=== PATIENT | female | born 1940 | race American Indian/Alaskan Native ===

== ENCOUNTER 2020-01-01 13:01 | Emergency (ER) | payer SELFPAY ==
--- NOTE | 2020-01-01 13:23 | Emergency Department Report ---
Blank Doc - Documentation Documentation: 79-year-old female that presents with SOB and blurry vision. No facial drooping. No headache. No abdnomal gait. Normal strength. No one sided weakness. This initial assessment/diagnostic orders/clinical plan/treatment(s) is/are subject to change based on patient's health status, clinical progression and re- assessment by fellow clinical providers in the ED. Further treatment and workup at subsequent clinical providers discretion. Patient/guardians urged not to elope from the ED as their condition may be serious if not clinically assessed and managed. Initial orders include: 1- Patient sent to MAIN ED for further evaluation and treatment 2- cardiac workup
[2020-01-01 13:26] VITALS: BP 108/60
[2020-01-01 14:06] LABS: Basophils # (Auto) 0.1 K/mm3 (0.0-0.1); Basophils % (Auto) 0.7 % (0.0-1.8); Eosinophils # (Auto) 0.1 K/mm3 (0.0-0.4); Eosinophils % (Auto) 1.2 % (0.0-4.3); Hematocrit 22.2 % (30.3-42.9); Hemoglobin 7.2 gm/dl (10.1-14.3); Lymphocytes # (Auto) 1.2 K/mm3 (1.2-5.4); Lymphocytes % (Auto) 14.7 % (13.4-35.0); Mean Corpuscular HGB Conc 32 % (30-34); Mean Corpuscular Volume 88 fl (79-97); Monocytes # (Auto) 0.7 K/mm3 (0.0-0.8); Monocytes % (Auto) 8.3 % (0.0-7.3); Platelet Count 430 K/mm3 (140-440); Red Blood Count 2.53 M/mm3 (3.65-5.03); Red Cell Distribution Width 16.2 % (13.2-15.2)
[2020-01-01 14:19] LABS: Partial Thromboplastin Time 30.3 Sec. (24.2-36.6)
[2020-01-01 14:20] LABS: INR 1.09 (0.87-1.13)
--- NOTE | 2020-01-01 14:26 | XRay Report ---
CHEST 2 VIEWS INDICATION: Chest Pain. COMPARISON: None. FINDINGS: Support devices: None. Heart: Within normal limits. Pulmonary vasculature: Normal. Lungs/pleura: Bibasal streaky lung opacities on the frontal view. Blunted costophrenic angles. Subseg mental atelectasis versus scar in the right middle lobe. No airspace disease or pleural effusion. No pneumothorax. Additional findings: None. IMPRESSION: 1. No CHF or pneumonia. 2. Bilateral lower lobe subsegmental atelectasis versus scarring. 3. Right middle lobe subsegmental atelectasis versus scar. Signer Name: Nic Barrera MD Signed: 01/01/2020 2:22 PM Workstation Name: [id number]
[2020-01-01 14:28] LABS: Albumin 2.9 g/dL (3.9-5); Calcium 8.5 mg/dL (8.4-10.2)
--- NOTE | 2020-01-01 19:14 | Emergency Department Report ---
HPI - General Chief Complaint: Dyspnea/Respdistress Time Seen by Provider: 01/01/20 13:21 - HPI HPI: 79-year-old -[place] female presents to the emergency department with complaint of a 2-month history of some blurry vision. She says that this st arted shortly after she moved here 2 months ago. The patient also has a history of hypertension, dementia, paroxysmal atrial fibrillation on Eliquis. Her primary care physician is Dr. Rodríguez and she has not seen him regarding her symptoms. Patient says that she will occasionally get some mild shortness of breath with exertion. She denies any fever, chest pain, headache, slurred speech or any other neurological deficits. The patient wears glasses. She does not have an associate of science in nursing. ED Past Medical Hx - Past Medical History Previous Medical History?: Yes Hx Hypertension: Yes Additional medical history: A fib - Social History Smoking Status: Current Some Day Smoker Substance Use Type: Alcohol - Medications Home Medications: Home Medications Medication Instructions Recorded Confirmed Last Taken Type Ferrous Sulfate [Feosol] 325 mg PO BID #40 tablet 01/01/20 Unknown Rx ED Review of Systems ROS: Stated complaint: [place]/BLURRY VISION Other details as noted in HPI Comment: All other systems reviewed and negative Constitutional: weakness. denies: fever Eyes: vision change (chronic). denies: eye pain ENT: denies: ear pain, throat pain Respiratory: SOB with exertion (intermittent, mild). denies: cough Cardiovascular: denies: chest pain, palpitations Gastrointestinal: denies: abdominal pain, vomiting Genitourinary: denies: dysuria, discharge Musculoskeletal: denies: back pain, arthralgia Skin: denies: rash, lesions Neurological: denies: headache, numbness Physical Exam - Physical Exam Vital Signs: Vital Signs 01/01/20 13:24 Temperature 98.4 F Pulse Rate 77 Respiratory 18 Rate Blood Pressure 108/60 [Left] O2 Sat by Pulse 100 Oximetry Physical Exam: GENERAL: The patient is well-developed well-nourished. HENT: Normocephalic. Atraumatic. Patient has moist mucous membranes. EYES: Extraocular motions are intact. Pupils equal reactive to light bilaterally. Visual acuity: OD 20/70, OS 20/50, OU 20/40. NECK: Supple. Trachea is midline. CHEST/LUNGS: Clear to auscultation. There is no respiratory distress noted. HEART/CARDIOVASCULAR: Regular. There is no tachycardia. ABDOMEN: Abdomen is soft, nontender. Patient has normal bowel sounds. There is no abdominal distention. SKIN: Skin is warm and dry. NEURO: The patient is awake, alert, and oriented. The patient is cooperative. The patient has no focal neurologic deficits. Normal speech. Cranial nerves II through XII grossly intact. No facial asymmetry. No pronator drift or dysmetria. MUSCULOSKELETAL: There is no tenderness or deformity. There is no limitation range of motion. There is no evidence of acute injury. ED Course Vital Signs 01/01/20 13:24 Temperature 98.4 F Pulse Rate 77 Respiratory 18 Rate Blood Pressure 108/60 [Left] O2 Sat by Pulse 100 Oximetry ED Medical Decision Making - Lab Data Result diagrams: 01/01/20 13:30 01/01/20 13:30 - EKG Data -: EKG Interpreted by Me EKG shows normal: sinus rhythm, axis, intervals, QRS complexes, ST-T waves Rate: normal - EKG Data When compared to previous EKG there are: previous EKG unavailable Interpretation: normal EKG - Radiology Data Radiology results: image reviewed interpreted by me: Chest x-ray does not show any pneumonia, pleural effusions, pneumothorax or focal consolidation. - Medical Decision Making This patient presents with a two-month history of some decreased vision and/or blurry vision. Through triage the patient had also complained of some intermittent mild shortness of breath and generalized weakness. On examination the patient does not appear to have any focal, motor or sensory deficits and her cranial nerves are intact. Her visual acuity is poor but she says that this has been going on for the past 2 months. She denies any headache. The patient is a 0 on the NIH stroke scale. EKG did not show any signs of ST elevation [place]. Chest x-ray did not show any pneumonia, pleural effusions, focal consolidation, pneumothorax, or any other acute process. Patient's labs are mostly unremarkable except for anemia with a hemoglobin of 7.2 and mild hypokalemia w ith potassium of 3.2. The patient was given potassium chloride. The patient says that there is potentially some history of anemia but she is not on any medication for it. I believe that this is partially the reason for her generalized weakness. Vital signs are stable throughout her ED course including no hypoxia, no fever, and no tachycardia. The patient has good follow-up with Dr. Reid for primary care. I contacted him and he is in agreement with outpatient follow-up in the next few days. She will be placed on iron supplements to help with her anemia. She has also been given referrals for ophthalmology regarding her poor vision. The patient will return to the emergency department immediately with any worsening of her symptoms or with any acute distress. - Differential Diagnosis Symptomatic anemia, electrolyte abnormalities, dysrhythmia Critical Care Time: No Critical care attestation.: If time is entered above; I have spent that time in minutes in the direct care of this critically ill patient, excluding procedure time. ED Disposition Clinical Impression: Hypokalemia, Poor vision Anemia Qualifiers: Anemia type: unspecified type Qualified Code(s): D64.9 - Anemia, unspecified Disposition: DC- TO HOME OR SELFCARE Is pt being admited?: No Condition: Stable Instructions: Hypokalemia (ED), Weakness (ED), Blurred Vision (ED), Anemia (ED) Additional Instructions: Please follow-up with Dr. Reid in the next 1 to 2 days without fail. I am also giving you a referral for a few different local ophthalmologists to follow-up regarding your poor vision. I am starting you on iron supplements to help with your anemia. Please return to the emergency department immediately with any worsening of your symptoms, development of chest pain or shortness of breath, or with any acute distress. Prescriptions: Ferrous Sulfate [Feosol] 325 mg PO BID #40 tablet Referrals: THANG REID MD [Staff Physician] - 2-3 Days CHLOE SANABRIA MD [Staff Physician] - 2-3 Days DEBBI GARCIA MD [Staff Physician] - 2-3 Days Time of Disposition: 20:07
[2020-01-01] MEDS ORDERED: POTASSIUM CHLORIDE ER 20 MEQ TAB PO ONE (19:25)
[2020-01-01 21:28] LABS: Bacteria,Urine 4+ /HPF (Negative); Mucus,Urine 3+ /HPF
[2020-01-01 21:49] LABS: Bilirubin,Urine NEG (Negative); Blood,Urine SM (Negative); Color,Urine Yellow (Yellow); Protein,Urine <15 mg/dL mg/dL (Negative); Urobilinogen,Urine < 2.0 mg/dL (<2.0)
== END 2020-01-01 20:15 | disposition home or self-care (01) ==
LOC: ED 13:01
DX: E87.6 Hypokalemia (principal); H53.8 Other visual disturbances; D64.9 Anemia, unspecified; I10 Essential (primary) hypertension; F17.200 Nicotine dependence, unspecified, uncomplicated; Z79.899 Other long term (current) drug therapy; Z88.0 Allergy status to penicillin; Z88.5 Allergy status to narcotic agent
CPT/HCPCS: 36415; 71046; 80053; 81001; 84484; 85025; 85610; 85730; 93005; 93010